=== PATIENT | male | born 1990 | race African-American/Black ===

== ENCOUNTER 2017-09-03 16:36 | Emergency (ER) | payer OTHER ==
[~2017-09-03] VITALS: Ht 185.4 cm; Wt 109.8 kg
[2017-09-03 16:40] VITALS: BP 120/65; Ht 185.4 cm; Wt 109.8 kg
== END 2017-09-03 18:38 | disposition home or self-care (01) ==
LOC: ED 16:36
DX: L03.811 Cellulitis of head [any part, except face] (principal)

== ENCOUNTER 2018-03-05 06:53 | Emergency (ER) | payer OTHER ==
[~2018-03-05] VITALS: Ht 185.4 cm; Wt 108.6 kg
[2018-03-05 07:53] LABS: BASOPHIL % 0.7 % (0-2); PLATELET COUNT 285 x10^3mcL (130-400)
[2018-03-05 08:03] LABS: CALCIUM 8.3 mg/dL (8.5-10.1); CARBON DIOXIDE 26.8 mmol/L (21-32); CHLORIDE SERUM 104 mmol/L (98-107); CREATININE SERUM 1.1 mg/dL (0.7-1.3); GFR1 > 60 mL/min; GLUCOSE SERUM 101 mg/dL (74-106); SODIUM SERUM 139 mmol/L (136-145)
[2018-03-05 08:06] LABS: RED CELL DISTRIBUTION WIDTH 14.6 % (11.5-14.5)
[2018-03-05 08:07] LABS: ALBUMIN 3.4 g/dL (3.4-5.0); ALKALINE PHOSPHATASE 64 U/L (46-116); ALT/SGPT 24 U/L (16-63); AST/SGOT 26 U/L (15-37); BILIRUBIN TOTAL 0.2 mg/dL (0.20-1.00); TOTAL PROTEIN, SERUM 7.1 g/dL (6.4-8.2)
[2018-03-05 09:47] VITALS: BP 112/72
== END 2018-03-05 09:47 | disposition home or self-care (01) ==
LOC: ED 06:53
PROVIDERS: Emergency Medicine
DX: R07.89 Other chest pain (principal); F17.210 Nicotine dependence, cigarettes, uncomplicated
CPT/HCPCS: 36415; 85378; Q0092

== ENCOUNTER 2018-09-20 08:24 | Emergency (ER) | payer OTHER ==
[~2018-09-20] VITALS: Ht 185.4 cm; Wt 107.7 kg
[2018-09-20 08:26] VITALS: Ht 185.4 cm; Wt 107.7 kg
[2018-09-20 09:14] LABS: BASOPHIL % 1.4 % (0-2); PLATELET COUNT 251 x10^3mcL (130-400)
[2018-09-20 09:25] LABS: CALCIUM 8.7 mg/dL (8.5-10.1); CARBON DIOXIDE 26.8 mmol/L (21-32); CHLORIDE SERUM 104 mmol/L (98-107); CREATININE SERUM 1.3 mg/dL (0.7-1.3); GFR1 > 60 mL/min; GLUCOSE SERUM 100 mg/dL (74-106); POTASSIUM SERUM 3.9 mmol/L (3.5-5.1); SODIUM SERUM 139 mmol/L (136-145)
[2018-09-20 09:30] LABS: ALBUMIN 3.8 g/dL (3.4-5.0); ALKALINE PHOSPHATASE 63 U/L (46-116); ALT/SGPT 29 U/L (16-63); AST/SGOT 16 U/L (15-37); BILIRUBIN TOTAL 0.3 mg/dL (0.20-1.00); TOTAL PROTEIN, SERUM 7.3 g/dL (6.4-8.2)
[2018-09-20 09:38] LABS: FREE T4 0.98 ng/dL (0.76-1.46); FREE THYROXINE INDEX 2.3 ug/dL (1.4-4.5)
[2018-09-20 09:40] LABS: T3 TOTAL 1.13 ng/mL
[2018-09-20 09:59] VITALS: BP 118/70
== END 2018-09-20 09:59 | disposition home or self-care (01) ==
LOC: ED 08:24
PROVIDERS: Emergency Medicine
DX: R07.89 Other chest pain (principal); R55 Syncope and collapse; E63.9 Nutritional deficiency, unspecified
CPT/HCPCS: 36415; 84439; Q0092